=== PATIENT | male | born 1940 ===

== ENCOUNTER 2018-01-13 19:43 | Emergency (ER) | payer MEDICARE ==
[2018-01-13 20:10] VITALS: BP 110/57; PULSE 60; RESP 16; TEMP 98.1; O2SAT 96
[2018-01-13 20:11] VITALS: BMI 35.7
[2018-01-13] MEDS ORDERED: Lidocaine 1% Inj (20ml) IJ ONE (20:29)
[2018-01-13] MEDS ORDERED: Tdap Vaccine 0.5 ml Vial (10-64 yrs) IM ONE ×2 (20:29→21:02)
[2018-01-13] MEDS ORDERED: Lidocaine 1% Inj (20ml) ONE (20:43)
[2018-01-13] MEDS ORDERED: Povidone Iodine Topical 10% Sol ONE (20:43)
--- NOTE | 2018-01-13 20:44 | ED PDOC ---
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 States he owns the dog. Denies numbness or tingling. PMD: Satya Polk Past Medical History Reviewed: Historical Data, Nursing Documentation, Vital Signs Vital Signs: Last Vital Signs Temp 98.1 F 01/13/18 20:10 Pulse 60 01/13/18 20:10 Resp 16 01/13/18 20:10 BP 110/57 L 01/13/18 20:10 Pulse Ox 96 01/13/18 20:49 - Medical History PMH: CAD, CHF, Diabetes, Gastritis, HTN, Hypercholesterolemia, Peripheral Edema , Sleep Apnea - Surgical History Surgical History: Coronary Stent, Pacemaker - Family History Family History: States: Unknown Family Hx - Home Medications Home Medications: Ambulatory Orders Medication Instructions Recorded Clopidogrel [Plavix] 75 mg PO DAILY 04/11/14 DULoxetine [Cymbalta] 60 mg PO QPM 04/11/14 Fluticasone Nasal [Flonase] 1 spr HEENA BID PRN 04/11/14 Insulin Glargine,Hum.rec.anlog 30 unit SC HS 04/11/14 [Lantus] Insulin Lispro Mix 75/25 [HumaLOG 30 units SC BID 04/11/14 Mix 75/25] Testosterone [Androgel] 4 actuation TOP DAILY 04/11/14 Acarbose [Precose 50 mg Tab] 50 mg PO ACTID 12/24/15 Allopurinol [Zyloprim] 100 mg PO DAILY 12/24/15 Canagliflozin [Invokana] 100 mg PO DAILY 12/24/15 Carvedilol [Coreg] 25 mg PO Q12H 12/24/15 Ergocalciferol (Vitamin D2) 50,000 unit PO Q14D 12/24/15 [Vitamin D2] Furosemide [Lasix] 20 mg PO DAILY 12/24/15 Ibuprofen [Motrin Tab] 600 mg PO BID PRN 12/24/15 Latanoprost 0.005% Opht [Xalatan 1 drop EACHEYE HS 12/24/15 Opht] Liraglutide [Victoza 3-Kane] 1.8 mg SC DAILY 12/24/15 Losartan/Hydrochlorothiazide 100 mg PO DAILY 12/24/15 [Hyzaar 100-25 Tablet] Magnesium Oxide [Magox 400] 400 mg PO DAILY 12/24/15 MetFORMIN ER [Glucophage XR] 1,000 mg PO BID 12/24/15 [place]-3 Fatty Acids [[place]-3] 1,000 mg PO TID 12/24/15 Potassium Chloride [Klor-Con 10] 10 meq PO DAILY 12/24/15 Rosuvastatin Calcium [Crestor] 10 mg PO DAILY 12/24/15 Sevelamer Carbonate [Renvela] 800 mg PO TID 12/24/15 Tamsulosin [Flomax] 0.4 mg PO HS 12/24/15 Zolpidem [Ambien] 10 mg PO HS PRN 12/24/15 amLODIPine [Norvasc] 5 mg PO DAILY 12/24/15 cloNIDine [Catapres] 0.1 mg PO BID 12/24/15 Albuterol 0.083% [Albuterol 0.083% 2.5 mg IH Q4 PRN #50 vial 06/14/16 Inhal Cristel (2.5 mg/3 ml) UD] Prednisone 50 mg PO DAILY #4 tablet 06/14/16 traMADol [Ultram] 50 mg PO TID PRN #20 tab 08/03/16 Albuterol HFA [Ventolin HFA 90 2 puff IH [id number] PRN #60 puff 09/24/16 mcg/actuation (8 g)] Benzonatate [Tessalon Perle] 100 mg PO Q8 PRN #30 capsule 09/24/16 Amoxicillin/Clavulanate [Augmentin 1 tab PO BID #20 tab 01/13/18 875 MG-125 MG] - Allergies Allergies/Adverse Reactions: Allergies Allergy/AdvReac Type Severity Reaction Status Date / Time No Known Allergies Allergy Verified 09/24/16 10:28 Review of Systems ROS Statement: Except As Marked, All Systems Reviewed And Found Negative Constitutional: Negative for: Other (numbness of tingling) Musculoskeletal: Positive for: Hand Pain (right) Physical Exam - Reviewed Nursing Documentation Reviewed: Yes Vital Signs Reviewed: Yes - Physical Exam Appears: Positive for: Non-toxic, No Acute Distress Head Exam: Positive for: ATRAUMATIC, NORMAL INSPECTION, NORMOCEPHALIC Skin: Positive for: Normal Color, Warm, Dry. Negative for: Rash Eye Exam: Positive for: Normal appearance Pulses-Radial (R): 2+ Extremity: Positive for: Normal ROM (actively of right thumb), Tenderness (2 cm superficial jagged laceration on right thenar eminence without tendon involvement or deep structure), Capillary Refill (less than 2 seconds), Swelling. Negative for: Deformity, Other (active bleeding) Neurologic/Psych: Positive for: Alert, Oriented (x3) - ECG O2 Sat by Pulse Oximetry: 96 (RA) Pulse Ox Interpretation: Normal Medical Decision Making Medical Decision Making: Time: 2018 Initial Plan: --Adacel 10-64 yrs 0.5ml IM --Lidocaine 1% (20ml) 3ml --Reevaluation Scribe Attestation: Documented by Barry Clark, acting as a scribe for Frandy Cheatham PA-C. Provider Scribe Attestation: All medical record entries made by the Scribe were at my direction and personally dictated by me. I have reviewed the chart and agree that the record accurately reflects my personal performance of the history, physical exam, medical decision making, and the department course for this patient. I have also personally directed, reviewed, and agree with the discharge instructions and disposition. Disposition - Clinical Impression Clinical Impression: Dog bite - Patient ED Disposition Is Patient to be Admitted: No - Disposition Referrals: [facility] [Outside] Disposition: Routine/Home Disposition Time: 23:00 Condition: STABLE Additional Instructions: Suture removal in 7-10 days. Follow up with PMD or return to ED in 48 hours for wound check. Return to ED immediately if symptoms worsen. Prescriptions: Amoxicillin/Clavulanate [Augmentin 875 MG-125 MG] 1 tab PO BID #20 tab Instructions: Animal Bites (DC) Forms: [employer] (Romanian) Procedures - Time-Out Type of Procedure: laceration repair Site of Procedure: R hand PA/Tech: Linden YAÑEZ - Laceration/Wound Repair Laceration repair Wound Length (cm): 2 Wound's Depth, Shape: superficial, irregular, stellate Wound Explored: clean Irrigated w/ Saline (ccs): 400 Betadine Prep?: Yes Anesthesia: 1% Lidocaine Volume Anesthetic (ccs): 4 Wound Repaired With: Sutures Suture Size/Type: 5:0, proline Number of Sutures: 7 Wound Complexity: Complex Sterile Dressing Applied?: Yes Progress: All sutures were loosely tied as laceration is due to a dog bite.
== END 2018-01-13 22:35 | disposition home or self-care (01) ==
LOC: H.ER 19:43
DX: S61.451A Open bite of right hand, initial encounter (principal); W54.0XXA Bitten by dog, initial encounter; Y92.89 Other specified places as the place of occurrence of the external cause; E11.9 Type 2 diabetes mellitus without complications; E78.00 Pure hypercholesterolemia, unspecified; I11.0 Hypertensive heart disease with heart failure; I50.9 Heart failure, unspecified; Z79.4 Long term (current) use of insulin; Z95.0 Presence of cardiac pacemaker; Z95.5 Presence of coronary angioplasty implant and graft; I25.10 Atherosclerotic heart disease of native coronary artery without angina pectoris

== ENCOUNTER 2018-01-15 08:22 | Emergency (ER) | payer MEDICARE ==
[2018-01-15 08:25] VITALS: BMI 35.4
[2018-01-15 08:26] VITALS: O2SAT 98
--- NOTE | 2018-01-15 09:06 | ED PDOC ---
HPI: Wound Care - HPI Time Seen by Provider: 01/15/18 08:48 Chief Complaint (Nursing): Wound Check History Per: Patient (this 77 yo male is here for wound check.) Past Medical History Vital Signs: Last Vital Signs Temp 98.6 F 01/15/18 08:26 Pulse 60 01/15/18 08:26 Resp 20 01/15/18 08:26 BP 153/70 H 01/15/18 08:26 Pulse Ox 98 01/15/18 08:26 - Medical History PMH: CAD, CHF, Diabetes, Gastritis, HTN, Hypercholesterolemia, Peripheral Edema , Sleep Apnea - Surgical History Surgical History: Coronary Stent, Pacemaker - Family History Family History: States: Unknown Family Hx - Home Medications Home Medications: Ambulatory Orders Medication Instructions Recorded Clopidogrel [Plavix] 75 mg PO DAILY 04/11/14 DULoxetine [Cymbalta] 60 mg PO QPM 04/11/14 Fluticasone Nasal [Flonase] 1 spr HEENA BID PRN 04/11/14 Insulin Glargine,Hum.rec.anlog 30 unit SC HS 04/11/14 [Lantus] Insulin Lispro Mix 75/25 [HumaLOG 30 units SC BID 04/11/14 Mix 75/25] Testosterone [Androgel] 4 actuation TOP DAILY 04/11/14 Acarbose [Precose 50 mg Tab] 50 mg PO ACTID 12/24/15 Allopurinol [Zyloprim] 100 mg PO DAILY 12/24/15 Canagliflozin [Invokana] 100 mg PO DAILY 12/24/15 Carvedilol [Coreg] 25 mg PO Q12H 12/24/15 Ergocalciferol (Vitamin D2) 50,000 unit PO Q14D 12/24/15 [Vitamin D2] Furosemide [Lasix] 20 mg PO DAILY 12/24/15 Ibuprofen [Motrin Tab] 600 mg PO BID PRN 12/24/15 Latanoprost 0.005% Opht [Xalatan 1 drop EACHEYE HS 12/24/15 Opht] Liraglutide [Victoza 3-Kane] 1.8 mg SC DAILY 12/24/15 Losartan/Hydrochlorothiazide 100 mg PO DAILY 12/24/15 [Hyzaar 100-25 Tablet] Magnesium Oxide [Magox 400] 400 mg PO DAILY 12/24/15 MetFORMIN ER [Glucophage XR] 1,000 mg PO BID 12/24/15 [place]-3 Fatty Acids [[place]-3] 1,000 mg PO TID 12/24/15 Potassium Chloride [Klor-Con 10] 10 meq PO DAILY 12/24/15 Rosuvastatin Calcium [Crestor] 10 mg PO DAILY 12/24/15 Sevelamer Carbonate [Renvela] 800 mg PO TID 12/24/15 Tamsulosin [Flomax] 0.4 mg PO HS 12/24/15 Zolpidem [Ambien] 10 mg PO HS PRN 12/24/15 amLODIPine [Norvasc] 5 mg PO DAILY 12/24/15 cloNIDine [Catapres] 0.1 mg PO BID 12/24/15 Albuterol 0.083% [Albuterol 0.083% 2.5 mg IH Q4 PRN #50 vial 06/14/16 Inhal Cristel (2.5 mg/3 ml) UD] Prednisone 50 mg PO DAILY #4 tablet 06/14/16 traMADol [Ultram] 50 mg PO TID PRN #20 tab 08/03/16 Albuterol HFA [Ventolin HFA 90 2 puff IH [id number] PRN #60 puff 09/24/16 mcg/actuation (8 g)] Benzonatate [Tessalon Perle] 100 mg PO Q8 PRN #30 capsule 09/24/16 Amoxicillin/Clavulanate [Augmentin 1 tab PO BID #20 tab 01/13/18 875 MG-125 MG] - Allergies Allergies/Adverse Reactions: Allergies Allergy/AdvReac Type Severity Reaction Status Date / Time No Known Allergies Allergy Verified 09/24/16 10:28 Review of Systems ROS Statement: Except As Marked, All Systems Reviewed And Found Negative Constitutional: Negative for: Fever, Chills Skin: Positive for: Other (no drainage or pain) Physical Exam - Reviewed Nursing Documentation Reviewed: Yes Vital Signs Reviewed: Yes - Physical Exam Appears: Positive for: Well, Non-toxic, No Acute Distress Head Exam: Positive for: ATRAUMATIC, NORMAL INSPECTION, NORMOCEPHALIC Skin: Positive for: Normal Color Eye Exam: Positive for: Normal appearance ENT: Positive for: Normal ENT Inspection Neck: Positive for: Normal Respiratory: Negative for: Respiratory Distress Gastrointestinal/Abdominal: Negative for: Distended Back: Positive for: Normal Inspection Extremity: Positive for: Normal ROM, Other (no induration or discharge). Negative for: Tenderness, Deformity, Swelling Neurologic/Psych: Positive for: Alert, Oriented - ECG O2 Sat by Pulse Oximetry: 98 Disposition - Clinical Impression Clinical Impression: Encounter for re-check of laceration wound - Patient ED Disposition Is Patient to be Admitted: No Doctor Will See Patient In The: Office Counseled Patient/Family Regarding: Diagnosis, Need For Followup - Disposition Referrals: [facility] [Outside] Disposition: Routine/Home Disposition Time: 09:11 Condition: STABLE Instructions: Wound Care (DC) - POA Present On Arrival: Falls Or Trauma
[2018-01-15 09:35] VITALS: BP 126/78; PULSE 78; RESP 19; TEMP 97
== END 2018-01-15 09:35 | disposition home or self-care (01) ==
LOC: H.ER 08:22
DX: Z48.00 Encounter for change or removal of nonsurgical wound dressing (principal)

== ENCOUNTER 2018-07-06 09:26 | Observation (INO) | payer MEDICARE ==
[2018-07-06 09:26] VITALS: BMI 35.4
[2018-07-06 10:12] LABS: BASO % 0.6 % (0.0-2.0); EOS # 0.1 K/uL (0.0-0.7); EOS % 1.3 % (0.0-4.0); HEMOGLOBIN 9.8 g/dL (12.0-18.0); LYMPH # 0.9 K/uL (1.0-4.3); LYMPH % 12.8 % (20.0-40.0); MEAN CELL VOLUME 91.7 fl (80.0-94.0); MEAN CORPUSCULAR HEMOGLOBIN 30.3 pg (27.0-31.0); MEAN PLATELET VOLUME 8.9 fl (7.2-11.7); MONO # 0.4 K/uL (0.0-0.8); MONO % 5.4 % (0.0-10.0); NEUT # 5.4 K/uL (1.8-7.0); NEUT % 79.9 % (50.0-75.0); NRBC % 0.1 % (0.0-0.0); RBC 3.25 Mil/uL (4.40-5.90); RED CELL DISTRIBUTION WIDTH 13.8 % (11.5-14.5); WHITE BLOOD COUNT 6.7 K/uL (4.8-10.8)
--- NOTE | 2018-07-06 10:34 | RAD ---
Date of service: 07/06/2018 HISTORY: Cough COMPARISON: No prior. TECHNIQUE: Chest PA and lateral FINDINGS: LINES AND TUBES: None. LUNG AND PLEURA: The lungs are well inflated and clear. No pleural effusion or pneumothorax. HEART AND MEDIASTINUM: There is moderate cardiomegaly. Atherosclerotic aortic arch calcifications are present. There is stable position of left-sided permanent pacing device. The hilar and mediastinal contours are within normal limits. SKELETAL STRUCTURES: The bony structures are within normal limits for the patient's age. VISUALIZED UPPER ABDOMEN: Normal. OTHER FINDINGS: None. IMPRESSION: No active pulmonary disease. No significant interval change.
[2018-07-06 10:37] LABS: TROPONIN I 0.019 ng/mL (0.00-0.120)
[2018-07-06 10:39] LABS: ALB/GLOB RATIO 1.1 (1.0-2.1); ALBUMIN 3.8 g/dL (3.5-5.0)
--- NOTE | 2018-07-06 11:15 | ED PDOC ---
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 Limitations: no limitations Onset/Duration Of Symptoms: Days (4), Gradual Current Symptoms Are (Timing): Still Present Initiating Event: Upper Respiratory Illness Quality: Tightness Exacerbating Factor(s): Exertion, Laying Flat Current Respiratory Medications: See Home Med List Severity: Moderate Associated Symptoms: Sweating, Productive Cough, Dizziness Recently: Treated By A Physician Additional Complaint(s): 77yo male hx pacemaker, DM, HTN, asthma presents c/o worsening cough and SOB, s een PMD Dr Polk yesterday started levaquin, medrol dose kane and albuterol, today chest congestion persisted hence came to ED for eval. Denies edema, has mild orthopnea. Takes lasix 20mg daily and Hyzaar/HCTZ. Family states also currently under workup for "blood behind the retina" had injection to eye and due for ophtho visit . Patient notes new redness to the eyes but denies change vision. Per family Dr Polk placed on eye drops yesterday but unsure for what. PMD [facility] Shira Brunson Past Medical History Reviewed: Historical Data, Nursing Documentation, Vital Signs Vital Signs: Last Vital Signs Temp 98.4 F 07/06/18 09:37 Pulse 60 07/06/18 09:37 Resp 15 07/06/18 09:37 BP 115/63 07/06/18 09:37 Pulse Ox 98 07/06/18 09:37 - Medical History PMH: CAD, CHF, Diabetes, Gastritis, HTN, Hypercholesterolemia, Peripheral Edema, Sleep Apnea - Surgical History Surgical History: Coronary Stent, Pacemaker - Family History Family History: States: Unknown Family Hx - Home Medications Home Medications: Ambulatory Orders Medication Instructions Recorded DULoxetine [Cymbalta] 60 mg PO DAILY 04/11/14 Fluticasone Nasal [Flonase] 1 spr HEENA BID PRN 04/11/14 Insulin Lispro Mix 75/25 [HumaLOG 30 units SC BID 04/11/14 Mix 75/25] Testosterone [Androgel] 4 actuation TOP DAILY 04/11/14 Acarbose [Precose 50 mg Tab] 50 mg PO ACTID 12/24/15 Allopurinol [Zyloprim] 200 mg PO DAILY 12/24/15 Carvedilol [Coreg] 25 mg PO Q12H 12/24/15 Ergocalciferol (Vitamin D2) 50,000 unit PO SUN 12/24/15 [Vitamin D2] Furosemide [Lasix] 20 mg PO DAILY 12/24/15 Latanoprost 0.005% Opht [Xalatan 1 drop EACHEYE HS 12/24/15 Opht] Liraglutide [Victoza 3-Kane] 1.8 mg SC DAILY 12/24/15 Losartan/Hydrochlorothiazide 1 tab PO DAILY 12/24/15 [Hyzaar 100-25 Tablet] [place]-3 Fatty Acids [[place]-3] 1,000 mg PO TID 12/24/15 Potassium Chloride [Klor-Con 10] 20 meq PO DAILY 12/24/15 Rosuvastatin Calcium [Crestor] 10 mg PO DAILY 12/24/15 Sevelamer Carbonate [Renvela] 800 mg PO TID 12/24/15 Tamsulosin [Flomax] 0.4 mg PO HS 12/24/15 amLODIPine [Norvasc] 5 mg PO DAILY 12/24/15 cloNIDine [Catapres] 0.1 mg PO Q12 12/24/15 Albuterol Sulfate [Proair Hfa] 2 puff IH Q6 PRN 07/06/18 Aspirin [Ecotrin] 81 mg PO DAILY 07/06/18 Ferric Citrate [Auryxia] 210 mg PO BID 07/06/18 Ferrous Sulfate [Feosol] 325 mg PO DAILY 07/06/18 Insulin Glargine,Hum.rec.anlog 30 unit SC HS 07/06/18 [[place] Solostar] MetFORMIN [glucoPHAGE] 1,000 mg PO BID 07/06/18 Methylprednisolone [Medrol Dose 4 mg PO ASDIR 07/06/18 Pack (21 tabs)] Promethazine DM [Phenergan DM 5 ml PO Q6 PRN 07/06/18 Syrup] Rivaroxaban [Xarelto] 15 mg PO QPM 07/06/18 Zolpidem [Ambien] 5 mg PO HS 07/06/18 levoFLOXacin [Levaquin] 500 mg PO DAILY 07/06/18 - Allergies Allergies/Adverse Reactions: Allergies Allergy/AdvReac Type Severity Reaction Status Date / Time No Known Allergies Allergy Verified 09/24/16 10:28 Wells Criteria for PE - Wells Criteria for Pulmonary Embolism Clinical Signs and Symptoms of DVT: No P.E is #1 Diagnosis, or Equally Likely: No Heart Rate >100: No Immobilization at least 3 days;Surgery previous 4 weeks: No Previous, objectively diagnosed PE or DVT: No Hemoptysis: No Malignancy w/treatment within 6 months, or palliative: No Total Score: 0 Review of Systems ROS Statement: Except As Marked, All Systems Reviewed And Found Negative Constitutional: Negative for: Fever, Chills Cardiovascular: Positive for: Chest Pain, Palpitations, Orthopnea Respiratory: Positive for: Cough, Shortness of Breath Gastrointestinal: Negative for: Nausea, Abdominal Pain, Diarrhea Genitourinary Male: Negative for: Dysuria Musculoskeletal: Negative for: Neck Pain, Shoulder Pain Skin: Negative for: Rash, Lesions Neurological: Positive for: Dizziness. Negative for: Weakness, Seizures, Headache Psych: Negative for: Depression Physical Exam - Reviewed Nursing Documentation Reviewed: Yes Vital Signs Reviewed: Yes - Physical Exam Appears: Positive for: Non-toxic, No Acute Distress Head Exam: Positive for: ATRAUMATIC, NORMAL INSPECTION, NORMOCEPHALIC Skin: Positive for: Normal Color, Warm, DRY Eye Exam: Positive for: EOMI, Normal appearance, PERRL ENT: Positive for: Normal ENT Inspection Neck: Positive for: Normal, Painless ROM Cardiovascular/Chest: Positive for: Regular Rate, Rhythm, Chest Non Tender Respiratory: Positive for: Decreased Breath Sounds Pulses-Radial (L): 3+/4+ Pulses-Radial (R): 3+/4+ Gastrointestinal/Abdominal: Positive for: Soft. Negative for: Tenderness, Guarding Back: Positive for: Normal Inspection Extremity: Positive for: Normal ROM Neurologic/Psych: Positive for: Alert, Oriented. Negative for: Motor/Sensory Deficits - Laboratory Results Result Diagrams: 07/06/18 10:06 07/06/18 10:06 - ECG ECG: Positive for: Interpreted By Me ECG Rhythm: Positive for: Venticular Paced, Nonspecific Changes Interpretation Of ECG: wide QRS/paced Rate: 60 O2 Sat by Pulse Oximetry: 98 Pulse Ox Interpretation: Normal - Radiology X-Ray: Read By Radiologist X-Ray Interpretation: Other (neg CHF or pneumonia) Medical Decision Making Medical Decision Making: labs reviewed and compared to prior from dec 3 and worsening renal function BNP mildly elevated WBC normal worsening anemia, Hgb 9.8 down 1 point from 2 weeks ago. CXR no acute pneumonia but clinically +cough w sputum, malaise, likely clinical pneumonia/bronchitis D/w Dr Mallory covering Dr Diaz, recommends avoiding levaquin and starting rocephin, admit Obs will see on consult. Needs outpt medications adjusted for renal function, metformin, EDWAR, etc. D/w PMD Dr Polk agrees w plan admit hospitalist needs confirmation of eye drops to continue on med floor Disposition - Clinical Impression Clinical Impression: Acute on chronic renal failure, Dyspnea, Acute bronchitis - Patient ED Disposition Is Patient to be Admitted: Yes Counseled Patient/Family Regarding: Studies Performed, Diagnosis, Need For Followup, Rx Given - Disposition Disposition Time: 11:08 Condition: FAIR
[2018-07-06] MEDS ORDERED: cefTRIAXone (Rocephin) 1 gm Inj ONE (11:47)
--- NOTE | 2018-07-06 12:31 | CP.PCM.HP ---
<Mitul Plata - Last Filed: 07/06/18 14:41> History of Present Illness - History of Present Illness History of Present Illness: 77 y/o M with PMHx of DM2, HTN, HLD and CKD presented to ED complaining of non- productive cough, mild SOB and bilateral eye redness and watery discharge that began 5 days ago. Pt visited PMD yesterday who administered IM steroid and started him on PO Levofloxacin and ?Prednisone. Pt reported his cough aggravated today and decided to come. Pt has decreased his PO intake on the past few days, specifically water intake. Pt denies fever, headache, dizziness, chest pain, wheezing, nausea, abdominal pain or rash. PMD: Dr Polk Cardiology: Dr Parr/Dr Valentin Nephology: Dr Mallory NKDA -PMHx: HTN, HLD, DM2, glaucoma, CKD -PSHx: Pacemaker placement -SHx: Never smoker, social alcohol once every 2 weeks, no rec drugs. At ED: --Normocytic anemia on CBC. --CMP: Creatinine 2.2-elevated. --CXR showed NO acute pneumonia. --NT-ProBNP 1,040-elevated. --IV Ceftriaxone administered x1. Present on Admission - Present on Admission Any Indicators Present on Admission: No Review of Systems - Constitutional Constitutional: absent: Anorexia, Chills, Fever - EENT Eyes: absent: Blind Spots, Blurred Vision, Change in Vision Ears: absent: Decreased Hearing, Ear Pain, Tinnitus Nose/Mouth/Throat: absent: Epistaxis, Change in Voice, Hoarsness, Sore Throat - Cardiovascular Cardiovascular: Dyspnea. absent: Chest Pain, Claudication, Edema - Respiratory Respiratory: Cough. absent: Dyspnea, Hemoptysis, Wheezing, Pain on Inspiration - Gastrointestinal Gastrointestinal: absent: Belching, Bloating, Constipation, Diarrhea - Genitourinary Genitourinary: absent: Change in Urinary Stream, Difficulty Urinating, Dysuria - Psychiatric Psychiatric: absent: Anxiety, Depression Past Patient History - Infectious Disease Hx of Infectious Diseases: None - Past Medical History & Family History Past Medical History?: Yes - Past Social History Smoking Status: Never Smoked - CARDIAC Hx Congestive Heart Failure: Yes Hx Hypercholesterolemia: Yes Hx Hypertension: Yes Hx Pacemaker: Yes Hx Peripheral Edema: Yes - PULMONARY Hx Sleep Apnea: Yes - NEUROLOGICAL Hx Neurological Disorder: Yes HX Cerebrovascular Accident: No Hx Dizziness: No Hx Syncope: No Other/Comment: DIABETIC NEUROPATHY - HEENT Hx HEENT Problems: Yes Hx Blind: No Hx Deafness: No Hx Difficulty Chewing: No Hx Glaucoma: Yes - ENDOCRINE/METABOLIC Hx Endocrine Disorders: Yes Hx Diabetes Mellitus Type 2: Yes - HEMATOLOGICAL/ONCOLOGICAL Hx Blood Disorders: No Hx Bruising: No Hx Hepatitis A: No Hx Hepatitis B: No Hx Hepatitis C: No - INTEGUMENTARY Hx Dermatological Problems: Yes Other/Comment: CHICKEN POXSHINGLES - MUSCULOSKELETAL/RHEUMATOLOGICAL Hx Musculoskeletal Disorders: Yes Hx Falls: Yes - GASTROINTESTINAL Hx Gastritis: Yes - GENITOURINARY/GYNECOLOGICAL Hx Genitourinary Disorders: Yes Other/Comment: difficulty urinating. pt takes flomax - PSYCHIATRIC Hx Psychophysiologic Disorder: No Hx Substance Use: No - SURGICAL HISTORY Hx Coronary Stent: Yes - ANESTHESIA Hx Anesthesia: Yes Hx Anesthesia Reactions: No Hx Malignant Hyperthermia: No Meds Allergies/Adverse Reactions: Allergies Allergy/AdvReac Type Severity Reaction Status Date / Time No Known Allergies Allergy Verified 09/24/16 10:28 Physical Exam - Constitutional Appears: No Acute Distress - Head Exam Head Exam: ATRAUMATIC, NORMAL INSPECTION - Eye Exam Eye Exam: Conjunctival injection, EOMI - ENT Exam ENT Exam: Mucous Membranes Moist - Neck Exam Neck exam: Positive for: Full Rom, Normal Inspection - Respiratory Exam Respiratory Exam: Rales (On LLL), Wheezes (at the end of expiration. ). absent: Respiratory Distress - Cardiovascular Exam Cardiovascular Exam: REGULAR RHYTHM, +S1, +S2 - GI/Abdominal Exam GI & Abdominal Exam: Normal Bowel Sounds, Soft. absent: Guarding, Rebound, Rigid, Tenderness - Extremities Exam Extremities exam: Positive for: full ROM, normal capillary refill. Negative for: calf tenderness, pedal edema, tenderness - Neurological Exam Neurological exam: Alert, Oriented x3 Results - Vital Signs Recent Vital Signs: Last Vital Signs Temp 98.4 F 07/06/18 12:26 Pulse 65 07/06/18 12:26 Resp 18 07/06/18 12:26 BP 143/66 07/06/18 12:26 Pulse Ox 95 07/06/18 12:26 - Labs Result Diagrams: 07/06/18 10:06 07/06/18 10:06 Labs: Laboratory Results - last 24 hr 07/06/18 07/06/18 10:06 10:06 WBC 6.7 RBC 3.25 L Hgb 9.8 L Hct 29.8 L MCV 91.7 MCH 30.3 MCHC 33.0 RDW 13.8 Plt Count 171 MPV 8.9 Neut % (Auto) 79.9 H Lymph % (Auto) 12.8 L [place] % (Auto) 5.4 Eos % (Auto) 1.3 Baso % (Auto) 0.6 Neut # (Auto) 5.4 Lymph # (Auto) 0.9 L [place] # (Auto) 0.4 Eos # (Auto) 0.1 Baso # (Auto) 0.0 Sodium 139 Potassium 4.9 Chloride 99 Carbon Dioxide 29 Anion Gap 16 BUN 37 H Creatinine 2.2 H Est GFR ( Amer) 35 Est GFR (Non-Af Amer) 29 Random Glucose 176 H Calcium 9.0 Total Bilirubin 0.2 AST 21 ALT 24 Alkaline Phosphatase 43 Troponin I 0.0190 NT-Pro-B Natriuret Pep 1040 H Total Protein 7.2 Albumin 3.8 Globulin 3.4 Albumin/Globulin Ratio 1.1 Assessment & Plan - Assessment and Plan (Free Text) Assessment: 77 y/o M with a PMHx of DM2, HTN, HLD and CKD was admitted due to clinical pneumonia, aggravating renal function and evaluation of acute heart failure. PLAN: >Community Acquired Pneumonia --CXR unremarkable --Clinically consistent with Acute bronchitis vs CAP. Possibly viral etiology since conjunctivitis is present. --IV Ceftriaxone and Azithromycin as empiric treatment. --Duoneb PRN. >Chronic Heart Failure --Hx of pacemaker placement, LVEF of 30-40% on 2016 Echocardiogram, rales on LL on exam. --NT-ProBNP 1,040-elevated. --Echocardiogram ordered. --Cardiology consult, Dr Baxter. --Duoneb PRN >Acute Kidney Injury --Creatinine 2.2-elevated. --acute on chronic kidney disease --Likely due to dehydration, poor PO intake. --Nephrology consult, Dr Mallory. --IV NSS at 80 mL/hr. --Monitor for possible volume overload. >DM2 --Home medication resumed --Insulin Sliding scale --Hypoglycemia protocol --Heart healthy diet. >HTN --Home meds resumed --F/U vital signs. >DVT Prophylaxis --SCD --Lovenox, renal dose Case discussed with Dr Meredith, Hospitalist [facility] PGY-2 - Date & Time Date: 07/06/18 Time: 13:15 <Andrei Meredith - Last Filed: 07/06/18 19:32> Results - Vital Signs Recent Vital Signs: Last Vital Signs Temp 97.9 F 07/06/18 15:46 Pulse 62 07/06/18 18:58 Resp 17 07/06/18 15:46 BP 136/65 07/06/18 18:58 Pulse Ox 96 07/06/18 15:46 - Labs Result Diagrams: 07/06/18 10:06 07/06/18 10:06 Labs: Laboratory Results - last 24 hr 07/06/18 07/06/18 07/06/18 10:06 10:06 16:46 WBC 6.7 RBC 3.25 L Hgb 9.8 L Hct 29.8 L MCV 91.7 MCH 30.3 MCHC 33.0 RDW 13.8 Plt Count 171 MPV 8.9 Neut % (Auto) 79.9 H Lymph % (Auto) 12.8 L [place] % (Auto) 5.4 Eos % (Auto) 1.3 Baso % (Auto) 0.6 Neut # (Auto) 5.4 Lymph # (Auto) 0.9 L [place] # (Auto) 0.4 Eos # (Auto) 0.1 Baso # (Auto) 0.0 Sodium 139 Potassium 4.9 Chloride 99 Carbon Dioxide 29 Anion Gap 16 BUN 37 H Creatinine 2.2 H Est GFR ( Amer) 35 Est GFR (Non-Af Amer) 29 POC Glucose (mg/dL) 275 H Random Glucose 176 H Calcium 9.0 Total Bilirubin 0.2 AST 21 ALT 24 Alkaline Phosphatase 43 Troponin I 0.0190 NT-Pro-B Natriuret Pep 1040 H Total Protein 7.2 Albumin 3.8 Globulin 3.4 Albumin/Globulin Ratio 1.1 Attending/Attestation - Attestation I have personally seen and examined this patient.: Yes I have fully participated in the care of the patient.: Yes I have reviewed all pertinent clinical information: Yes Notes (Text): 07/06/18 19:31 Patient seen and examined with resident. Case discussed and agreed with assessment and plan of management.
[2018-07-06] MEDS ORDERED: Albuterol-Ipratrop 3 mg / 0.5 (3 ml) UD INH PRN (14:18)
[2018-07-06] MEDS ORDERED: Dextrose 50% SYRINGE Inj (50 ml) IV PRN (14:24)
[2018-07-06] MEDS ORDERED: Glucagon Recombinant 1 mg Inj IM PRN (14:24)
[2018-07-06] MEDS: Azithromycin 500 MG in Sodium Chloride 0.9% 250 ML IVPB SCH (16:29)
[2018-07-06] MEDS: Omega-3-Acid Ethyl Esters 1 GM Cap PO SCH (16:35)
[2018-07-06] MEDS: Insulin Lispro (humaLOG) 100 Units/ml Inj SC SCH ×3 (16:48→22:58)
--- NOTE | 2018-07-06 19:04 | CARD ---
APPROVED REPORT Date of service: 07/06/2018 EKG Measurement Heart [id number] <Conclusion> AV sequential paced rhythm Abnormal ECG
--- NOTE | 2018-07-06 19:16 | CARD ---
APPROVED REPORT Date of service: 07/06/2018 EXAM: Two-dimensional and M-mode echocardiogram with Doppler and color Doppler. Other Information Quality : GoodRhythm : Pacemaker INDICATION Dyspnea Surgery/Intervention Pacemaker: 2D DIMENSIONS IVSd1.31 (0.7-1.1cm)LVDd5.28 (3.9-5.9cm) LVOT Diameter1.86 (1.8-2.4cm)PWd1.08 (0.7-1.1cm) IVSs1.98 (0.8-1.2cm)LVDs3.14 (2.5-4.0cm) FS (%) 40.4 %PWs1.38 (0.8-1.2cm) M-Mode DIMENSIONS Left Atrium (MM)4.06 (2.5-4.0cm)IVSd1.56 (0.7-1.1cm) Aortic Root3.53 (2.2-3.7cm)LVDd5.59 (4.0-5.6cm) Aortic Cusp Exc.1.78 (1.5-2.0cm)PWd1.28 (0.7-1.1cm) IVSs1.81 cmFS (%) 40 % LVDs3.38 (2.0-3.8cm)PWs1.56 cm Aortic Valve AoV Peak Zlbahvyj290.3cm/sAoV VTI54.0cmAO Peak GR.25mmHg LVOT Peak Uqxlyhqi796.1cm/sLVOT VTI25.34cmAO Mean GR.13mmHg ALMAS (VMAX)0.69ku0NTS (VTI)0.66cm2 Mitral Valve MV E Muubnvpn331.9cm/sMV DECEL [id number] A Fwnjmwrp252.5cm/s MV VMV97hlI/A ratio1.0MVA (PHT)3.64cm2 LEFT VENTRICLE The left ventricle is normal size. There is normal left ventricular wall thickness. The left ventricular systolic function is normal. The estimated ejection fraction is 55-60% No regional wall motion abnormalities noted.. Transmitral Doppler flow pattern is Grade II-pseudonormal filling dynamics. No left ventricle thrombus noted on this study. There is no ventricular septal defect visualized. There is no left ventricular aneurysm. There is no mass noted in the left ventricle. RIGHT VENTRICLE The right ventricle is normal size. There is normal right ventricular wall thickness. The right ventricular systolic function is normal. PPM lead is noticed in right ventricle. ATRIA The left atrium is mild to moderately dilated. The right atrium size is normal. The interatrial septum is intact with no evidence for an atrial septal defect. AORTIC VALVE The aortic valve is normal in structure. Mildly calcified leaflets. No aortic regurgitation is present. There is mild to moderate aortic valvular stenosis. Peak aortic velocity is 2.5 m/sec. There is no aortic valvular vegetation. MITRAL VALVE The mitral valve is normal in structure. There is no evidence of mitral valve prolapse. There is no mitral valve stenosis. There is trace mitral valve regurgitation noted. TRICUSPID VALVE The tricuspid valve is normal in structure. There is mild tricuspid valve regurgitation noted. There is no tricuspid valve prolapse or vegetation. There is no tricuspid valve stenosis. PULMONIC VALVE The pulmonary valve is normal in structure. There is no pulmonic valvular regurgitation. There is no pulmonic valvular stenosis. GREAT VESSELS The aortic root is normal in size. The ascending aorta is normal in size. The pulmonary artery is normal. The IVC is dilated in size and collapses >50% with inspiration. PERICARDIAL EFFUSION There is no pericardial effusion. There is no pleural effusion. <Conclusion> The estimated ejection fraction is 55-60% Transmitral Doppler flow pattern is Grade II-pseudonormal filling dynamics. The left atrium is mild to moderately dilated. PPM lead is noticed in right ventricle. There is mild to moderate aortic valvular stenosis. Peak aortic velocity is 2.5 m/sec. There is mild tricuspid valve regurgitation noted. The IVC is dilated in size and collapses >50% with inspiration.
--- NOTE | 2018-07-06 20:14 | CP.PCM.CON ---
History of Present Illness - History of Present Illness History of Present Illness: I was asked to see patient by Dr Adame, who I am covering. Patient seen 07/06/181999 Patient is a 77 jeancarlos old male with HTN, hypercholesterolemia CAD PPM who presents with dyspnea. Symptoms began about one week ago, and the patient reports dyspnea and productive cough. He had a recent cardiac work up with Dr Adame. He is responding to abx. Review of Systems - Constitutional Constitutional: absent: As Per HPI, Anorexia, Chills, Daytime Sleepiness, Excessive Sweating, Fatigue, Fever, Frequent Falls, Headache, Increased Appetite, Lethargy, Malaise, Night Sweats, Snoring, Sleep Apnea, Weight Gain, Weight Loss, Weakness, Other - EENT Eyes: absent: As Per HPI, Blind Spots, Blurred Vision, Change in Vision, Decreased Night Vision, Diplopia, Discharge, Dry Eye, Exophthalmos, Floaters, Irritation, Itchy Eyes, Loss of Peripheral Vision, Pain, Photophobia, Requires Corrective Lenses, Sees Flashes, Spots in Vision, Tunnel Vision, Other Visual Disturbances, Loss of Vision, Other Ears: absent: As Per HPI, Decreased Hearing, Ear Discharge, Ear Pain, Tinnitus, Abnormal Hearing, Disequilibrium, Dizziness, Other Nose/Mouth/Throat: absent: As Per HPI, Epistaxis, Nasal Congestion, Nasal Discharge, Nasal Obstruction, Nasal Trauma, Nose Pain, Post Nasal Drip, Sinus Pain, Sinus Pressure, Bleeding Gums, Change in Voice, Dental Pain, Dry Mouth, Dysphagia, Halitosis, Hoarsness, Lip Swelling, Mouth Lesions, Mouth Pain, Odynophagia, Sore Throat, Throat Swelling, Tongue Swelling, Facial Pain, Neck Pain, Neck Mass, Other - Cardiovascular Cardiovascular: absent: As Per HPI, Acrocyanosis, Chest Pain, Chest Pain at Rest, Chest Pain with Activity, Claudication, Diaphoresis, Dyspnea, Dyspnea on Exertion, Edema, Irregular Heart Rhythm, Pain Radiating to Arm/Neck/Jaw, Leg Edema, Leg Ulcers, Lightheadedness, Orthopnea, Palpitations, Paroxysmal Nocturnal Dyspnea, Pedal Edema, Radiating Pain, Rapid Heart Rate, Slow Heart Rate, Syncope, Other - Respiratory Respiratory: Dyspnea - Gastrointestinal Gastrointestinal: absent: As Per HPI, Abdominal Pain, Belching, Bloating, Change in Bowel Habits, Change in Stool Character, Coffee Ground Emesis, Constipation, Cramping, Diarrhea, Dyspepsia, Dysphagia, Early Satiety, Excessive Flatus, Fecal Incontinence, Heartburn, Hematemesis, Hematochezia, Loose Stools, Melena, Nausea, Odynophagia, Temesmus, Vomiting, Other - Genitourinary Genitourinary: absent: As Per HPI, Change in Urinary Stream, Difficulty Urinating, Dysuria, Flank Pain, Hematuria, Pyuria, Nocturia, Urinary Inc ontinence, Urinary Frequency, Urinary Hesitance, Urinary Urgency, Voiding Freq/Small Amts, Freq UTI, Hx Renal/Bladder Calculi, Hx /Renal Surgery, Bladder Distension, Other - Musculoskeletal Musculoskeletal: absent: As Per HPI, Abnormal Gait, Arthralgias, Atrophy, Back Pain, Deformity, Joint Swelling, Limited Range of Motion, Loss of Height, Muscle Cramps, Muscle Weakness, Myalgias, Neck Pain, Numbness, Radiating Pain into Limb, Stiffness, Tingling, Other - Integumentary Integumentary: absent: As Per HPI, Acne, Alopecia, Bleeding Lesions, Change in Hair, Change in Nails, Change in Pigmentation, Changing Lesions, Dry Skin, Erythema, Furuncle, Hirsutism, Lesions, New Lesions, Non-Healing Lesions, Photosensitivity, Pruritus, Rash, Skin Pain, Skin Ulcer, Sores, Striae, Swelling, Unusual Bruising, Wounds, Jaundice, Other - Neurological Neurological: absent: As Per HPI, Abnormal Gait, Abnormal Hearing, Abnormal Movements, Abnormal Speech, Behavioral Changes, Burning Sensations, Confusion, Convulsions, Disequilibrium, Dizziness, Numbness, Focal Weakness, Frequent Falls, Headaches, Lack of Coordination, Loss of Vision, Memory Loss, Paresthesias, Radicular Pain, Restless Legs, Sensory Deficit, Syncope, Tingling, Tremor, Vertigo, Weakness, Other Visual Disturbances, Other - Psychiatric Psychiatric: absent: As Per HPI, Abnormal Sleep Pattern, Anhedonia, Anxiety, Auditory Hallucinations, Behavioral Changes, Change in Appetite, Change in Libido, Confusion, Depression, Difficulty Concentrating, Hallucinations, Homicidal Ideation, Hopelessness, Irritability, Memory Loss, Mood Swings, Panic Attacks, Paranoia, Suicidal Ideation, Visual Hallucinations, Tactile Hallucinations, Other - Endocrine Endocrine: absent: As Per HPI, Change in Body Appearance, Change in Libido, Cold Intolorance, Deepening of Voice, Excessive Sweating, Fatigue, Flushing, Heat Intolorance, Increase in Ring/Shoe/Hat Size, Palpitations, Polydipsia, Polyphagia, Polyuria, Other - Hematologic/Lymphatic Hematologic: absent: As Per HPI, Easy Bleeding, Easy Bruising, Lymphadenopathy, Other Past Patient History - Infectious Disease Hx of Infectious Diseases: None - Past Medical History & Family History Past Medical History?: Yes - Past Social History Smoking Status: Never Smoked - CARDIAC Hx Congestive Heart Failure: Yes Hx Hypercholesterolemia: Yes Hx Hypertension: Yes Hx Pacemaker: Yes Hx Peripheral Edema: Yes - PULMONARY Hx Sleep Apnea: Yes - NEUROLOGICAL Hx Neurological Disorder: Yes HX Cerebrovascular Accident: No Hx Dizziness: No Hx Syncope: No Other/Comment: DIABETIC NEUROPATHY - HEENT Hx HEENT Problems: Yes Hx Blind: No Hx Deafness: No Hx Difficulty Chewing: No Hx Glaucoma: Yes - RENAL Hx Chronic Kidney Disease: No - ENDOCRINE/METABOLIC Hx Endocrine Disorders: Yes Hx Diabetes Mellitus Type 2: Yes - HEMATOLOGICAL/ONCOLOGICAL Hx Blood Disorders: No Hx Bruising: No Hx Hepatitis A: No Hx Hepatitis B: No Hx Hepatitis C: No - INTEGUMENTARY Hx Dermatological Problems: Yes Other/Comment: CHICKEN POXSHINGLES - MUSCULOSKELETAL/RHEUMATOLOGICAL Hx Musculoskeletal Disorders: Yes Hx Falls: Yes - GASTROINTESTINAL Hx Gastritis: Yes - GENITOURINARY/GYNECOLOGICAL Hx Genitourinary Disorders: Yes Other/Comment: difficulty urinating. pt takes flomax - PSYCHIATRIC Hx Psychophysiologic Disorder: No Hx Substance Use: No - SURGICAL HISTORY Hx Coronary Stent: Yes - ANESTHESIA Hx Anesthesia: Yes Hx Anesthesia Reactions: No Hx Malignant Hyperthermia: No Meds Allergies/Adverse Reactions: Allergies Allergy/AdvReac Type Severity Reaction Status Date / Time No Known Allergies Allergy Verified 09/24/16 10:28 - Medications Medications: Current Medications Acarbose (Precose 50 Mg Tab) 50 mg PO ACTID [facility] Last Admin: 07/06/18 16:36 Dose: 50 mg Albuterol/Ipratropium (Duoneb 3 Mg/0.5 Mg (3 Ml) Ud) 3 ml INH RQ6 PRN PRN Reason: Shortness of Breath Allopurinol (Zyloprim) 200 mg PO DAILY [facility] Amlodipine Besylate (Norvasc) 5 mg PO DAILY [facility] Aspirin (Ecotrin) 81 mg PO DAILY [facility] Atorvastatin Calcium (Lipitor) 20 mg PO DAILY [facility] Carvedilol (Coreg) 25 mg PO Q12H [facility] Last Admin: 07/06/18 18:58 Dose: 25 mg Clonidine HCl (Catapres) 0.1 mg PO Q12 [facility] Dextrose (Dextrose 50% Inj) 0 ml IV STAT PRN; Protocol PRN Reason: Hypoglycemia Protocol Dextrose (Glutose 15) 0 gm PO ONCE PRN; Protocol PRN Reason: Hypoglycemia Protocol Duloxetine HCl (Cymbalta) 60 mg PO DAILY [facility] Enoxaparin Sodium (Lovenox) 30 mg SC DAILY [facility]; Protocol Ferrous Sulfate (Feosol) 325 mg PO DAILY [facility] Fluticasone Propionate (Flonase) 1 spr HEENA BID PRN PRN Reason: Allergy symptoms Furosemide (Lasix) 20 mg PO DAILY [facility] Glucagon (Glucagen Diagnostic Kit) 0 mg IM STAT PRN; Protocol PRN Reason: Hypoglycemia Protocol HCTZ/Losartan Potassium (Hyzaar 12.5 Mg-50 Mg) 2 tab PO DAILY [facility] Home Med (Liraglutide [Victoza 3-Kane]) 1.8 mg SC DAILY [facility] Azithromycin 500 mg/ Sodium (Chloride) 250 mls @ 250 mls/hr IVPB DAILY [facility]; Protocol Last Admin: 07/06/18 16:29 Dose: 250 mls/hr Ceftriaxone Sodium 1 gm/ (Sodium Chloride) 100 mls @ 100 mls/hr IVPB DAILY [facility]; Protocol Sodium Chloride (Sodium Chloride 0.45%) 500 mls @ 80 mls/hr IV .[id number] [facility] Stop: 07/07/18 11:24 Last Admin: 07/06/18 16:32 Dose: 80 mls/hr Insulin Human Lispro (Humalog) 0 units SC ACCU-CHECK [facility]; Protocol Last Admin: 07/06/18 16:48 Dose: 4 units Latanoprost (Xalatan Opht) 1 drop OD HS [facility] Metformin HCl (Glucophage) 1,000 mg PO BID [facility] Last Admin: 07/06/18 16:35 Dose: 1,000 mg Kxsqi-[id number] Ethyl Esters (Lovaza) 1 gm PO TID [facility] Last Admin: 07/06/18 16:35 Dose: 1 gm Potassium Chloride (Klor-Con 10) 20 meq PO DAILY [facility] Promethazine HCl/Dextromethorphan (Phenergan Dm Syrup) 5 ml PO Q6 PRN PRN Reason: Cough Rivaroxaban (Xarelto) 15 mg PO QPM [facility]; Protocol Last Admin: 07/06/18 18:56 Dose: 15 mg Sevelamer Carbonate (Renvela) 800 mg PO TID [facility] Last Admin: 07/06/18 16:38 Dose: 800 mg Tamsulosin HCl (Flomax) 0.4 mg PO HS RAY Zolpidem Tartrate (Ambien) 5 mg PO HS [facility] Physical Exam - Constitutional Appears: Non-toxic - Head Exam Head Exam: NORMAL INSPECTION - Eye Exam Eye Exam: Normal appearance - ENT Exam ENT Exam: Mucous Membranes Moist - Neck Exam Neck exam: Positive for: Full Rom - Respiratory Exam Respiratory Exam: NORMAL BREATHING PATTERN - Cardiovascular Exam Cardiovascular Exam: REGULAR RHYTHM - GI/Abdominal Exam GI & Abdominal Exam: Normal Bowel Sounds - Rectal Exam Rectal Exam: Deferred - Extremities Exam Extremities exam: Negative for: pedal edema - Back Exam Back exam: NORMAL INSPECTION - Neurological Exam Neurological exam: Alert, Oriented x3 - Psychiatric Exam Psychiatric exam: Normal Affect - Skin Skin Exam: Normal Color Results - Vital Signs Recent Vital Signs: Last Vital Signs Temp 97.9 F 07/06/18 15:46 Pulse 62 07/06/18 18:58 Resp 17 07/06/18 15:46 BP 136/65 07/06/18 18:58 Pulse Ox 96 07/06/18 15:46 - Labs Result Diagrams: 07/06/18 10:06 07/06/18 10:06 Labs: Laboratory Results - last 24 hr 07/06/18 07/06/18 07/06/18 10:06 10:06 16:46 WBC 6.7 RBC 3.25 L Hgb 9.8 L Hct 29.8 L MCV 91.7 MCH 30.3 MCHC 33.0 RDW 13.8 Plt Count 171 MPV 8.9 Neut % (Auto) 79.9 H Lymph % (Auto) 12.8 L [place] % (Auto) 5.4 Eos % (Auto) 1.3 Baso % (Auto) 0.6 Neut # (Auto) 5.4 Lymph # (Auto) 0.9 L [place] # (Auto) 0.4 Eos # (Auto) 0.1 Baso # (Auto) 0.0 Sodium 139 Potassium 4.9 Chloride 99 Carbon Dioxide 29 Anion Gap 16 BUN 37 H Creatinine 2.2 H Est GFR ( Amer) 35 Est GFR (Non-Af Amer) 29 POC Glucose (mg/dL) 275 H Random Glucose 176 H Calcium 9.0 Total Bilirubin 0.2 AST 21 ALT 24 Alkaline Phosphatase 43 Troponin I 0.0190 NT-Pro-B Natriuret Pep 1040 H Total Protein 7.2 Albumin 3.8 Globulin 3.4 Albumin/Globulin Ratio 1.1 - EKG Data EKG Interpreted by: Myself EKG shows normal: Sinus rhythm Assessment & Plan (1) Dyspnea Assessment and Plan: likely due to pulmonary origin. no evidence of heart failure. LV function is normal. Status: Acute (2) CAD (coronary artery disease) Assessment and Plan: medical therapy. no current angina Status: Acute (3) HTN (hypertension) Assessment and Plan: blood pressure control Status: Acute
[2018-07-06] MEDS ORDERED: Latanoprost 0.005% Opht SOUTION OD SCH (22:00)
[2018-07-06] MEDS: Promethazine DM 6.25 mg-15 mg/5 ml Syrup PO PRN (22:53)
[2018-07-07 03:27] VITALS: RESP 20
[2018-07-07 05:41] LABS: HEMOGLOBIN 9.7 g/dL (12.0-18.0); MEAN CORPUSCULAR HEMOGLOBIN 29.8 pg (27.0-31.0); MEAN CORPUSCULAR HGB CONC 33.1 g/dL (33.0-37.0); RBC 3.24 Mil/uL (4.40-5.90); WHITE BLOOD COUNT 6.5 K/uL (4.8-10.8)
[2018-07-07 05:45] LABS: CALCIUM 8.7 mg/dL (8.4-10.2)
[2018-07-07] MEDS ORDERED: HCTZ/Losartan 12.5/50 Tab PO SCH (09:00)
[2018-07-07] MEDS ORDERED: Enoxaparin 30 mg Syringe SC SCH (09:00)
[2018-07-07] MEDS ORDERED: Potassium Chloride 20 mEq ER Tab PO SCH (09:00)
[2018-07-07] MEDS: Azithromycin 500 MG in Sodium Chloride 0.9% 250 ML IVPB SCH (09:07)
[2018-07-07] MEDS: Omega-3-Acid Ethyl Esters 1 GM Cap PO SCH (09:08)
[2018-07-07] MEDS: Insulin Lispro (humaLOG) 100 Units/ml Inj SC SCH ×2 (09:18→12:52)
[2018-07-07] MEDS ORDERED: Albuterol-Ipratrop 3 mg / 0.5 (3 ml) UD INH SCH ×2 (09:30)
--- NOTE | 2018-07-07 10:32 | CP.PCM.CON ---
History of Present Illness - History of Present Illness History of Present Illness: 77 years of age male I was called to see him for abnormal kidney function. Patient presented to the emergency room complaining of some cough and congestion and he was given Levaquin and treatment for upper respiratory tract infection as outpatient I believe patient may have only 1 or 2 doses of Levaquin and the patient known to have multiple past medical history as well. And when he presented to the emergency room noted to serum creatinine elevated 2.2 Past medical history Diabetes mellitus and hypertension and pacemaker and history of chronic kidney disease he has been seen barrel raiser as outpatient Hyperlipidemia And pacemaker Review of Systems - Constitutional Constitutional: Anorexia - EENT Nose/Mouth/Throat: As Per HPI - Cardiovascular Cardiovascular: Dyspnea, Dyspnea on Exertion. absent: Edema - Respiratory Respiratory: Cough, Dyspnea, Chest Congestion - Gastrointestinal Gastrointestinal: absent: Abdominal Pain, Coffee Ground Emesis, Nausea - Genitourinary Genitourinary: Nocturia - Musculoskeletal Musculoskeletal: absent: Abnormal Gait, Back Pain, Numbness - Integumentary Integumentary: As Per HPI, Acne, Alopecia, Bleeding Lesions, Change in Hair, Change in Nails, Change in Pigmentation, Changing Lesions, Dry Skin, Erythema, Furuncle, Hirsutism, Lesions, New Lesions, Non-Healing Lesions, Photosensitivity, Pruritus, Rash, Skin Pain, Skin Ulcer, Sores, Striae, Swell ing, Unusual Bruising, Wounds, Jaundice, Other - Neurological Neurological: As Per HPI, Abnormal Gait, Abnormal Hearing, Abnormal Movements, Abnormal Speech, Behavioral Changes, Burning Sensations, Confusion, Convulsions, Disequilibrium, Dizziness, Numbness, Focal Weakness, Frequent Falls, Headaches, Lack of Coordination, Loss of Vision, Memory Loss, Paresthesias, Radicular Pain, Restless Legs, Sensory Deficit, Syncope, Tingling, Tremor, Vertigo, Weakness, Other Visual Disturbances, Other - Psychiatric Psychiatric: As Per HPI, Abnormal Sleep Pattern, Anhedonia, Anxiety, Auditory Hallucinations, Behavioral Changes, Change in Appetite, Change in Libido, Confusion, Depression, Difficulty Concentrating, Hallucinations, Homicidal Ideation, Hopelessness, Irritability, Memory Loss, Mood Swings, Panic Attacks, Paranoia, Suicidal Ideation, Visual Hallucinations, Tactile Hallucinations, Other - Endocrine Endocrine: absent: Fatigue - Hematologic/Lymphatic Hematologic: absent: Easy Bleeding Past Patient History - Infectious Disease Hx of Infectious Diseases: None - Past Medical History & Family History Past Medical History?: Yes - Past Social History Smoking Status: Never Smoked - CARDIAC Hx Congestive Heart Failure: Yes Hx Hypercholesterolemia: Yes Hx Hypertension: Yes Hx Pacemaker: Yes Hx Peripheral Edema: Yes - PULMONARY Hx Sleep Apnea: Yes - NEUROLOGICAL Hx Neurological Disorder: Yes HX Cerebrovascular Accident: No Hx Dizziness: No Hx Syncope: No Other/Comment: DIABETIC NEUROPATHY - HEENT Hx HEENT Problems: Yes Hx Blind: No Hx Deafness: No Hx Difficulty Chewing: No Hx Glaucoma: Yes - RENAL Hx Chronic Kidney Disease: No - ENDOCRINE/METABOLIC Hx Endocrine Disorders: Yes Hx Diabetes Mellitus Type 2: Yes - HEMATOLOGICAL/ONCOLOGICAL Hx Blood Disorders: No Hx Bruising: No Hx Hepatitis A: No Hx Hepatitis B: No Hx Hepatitis C: No - INTEGUMENTARY Hx Dermatological Problems: Yes Other/Comment: CHICKEN POXSHINGLES - MUSCULOSKELETAL/RHEUMATOLOGICAL Hx Musculoskeletal Disorders: Yes Hx Falls: Yes - GASTROINTESTINAL Hx Gastritis: Yes - GENITOURINARY/GYNECOLOGICAL Hx Genitourinary Disorders: Yes Other/Comment: difficulty urinating. pt takes flomax - PSYCHIATRIC Hx Psychophysiologic Disorder: No Hx Substance Use: No - SURGICAL HISTORY Hx Coronary Stent: Yes - ANESTHESIA Hx Anesthesia: Yes Hx Anesthesia Reactions: No Hx Malignant Hyperthermia: No Meds Allergies/Adverse Reactions: Allergies Allergy/AdvReac Type Severity Reaction Status Date / Time No Known Allergies Allergy Verified 09/24/16 10:28 - Medications Medications: Current Medications Acarbose (Precose 50 Mg Tab) 50 mg PO ACTID [facility] [place] Last Admin: 07/07/18 09:09 Dose: 50 mg Albuterol/Ipratropium (Duoneb 3 Mg/0.5 Mg (3 Ml) Ud) 3 ml INH RQ4 [facility] [place] Allopurinol (Zyloprim) 200 mg PO DAILY [facility] [place] Last Admin: 07/07/18 09:17 Dose: 200 mg Amlodipine Besylate (Norvasc) 5 mg PO DAILY [facility] [place] Last Admin: 07/07/18 09:13 Dose: 5 mg Aspirin (Ecotrin) 81 mg PO DAILY [facility] [place] Last Admin: 07/07/18 09:16 Dose: 81 mg Atorvastatin Calcium (Lipitor) 20 mg PO DAILY [facility] [place] Last Admin: 07/07/18 09:16 Dose: 20 mg Carvedilol (Coreg) 25 mg PO Q12H [facility] [place] Last Admin: 07/07/18 05:13 Dose: 25 mg Clonidine HCl (Catapres) 0.1 mg PO Q12 [facility] [place] Last Admin: 07/07/18 09:11 Dose: 0.1 mg Dextrose (Dextrose 50% Inj) 0 ml IV STAT PRN; Protocol PRN Reason: Hypoglycemia Protocol Dextrose (Glutose 15) 0 gm PO ONCE PRN; Protocol PRN Reason: Hypoglycemia Protocol Duloxetine HCl (Cymbalta) 60 mg PO DAILY [facility] [place] Last Admin: 07/07/18 09:08 Dose: 60 mg Ferrous Sulfate (Feosol) 325 mg PO DAILY [facility] [place] Last Admin: 07/07/18 09:09 Dose: 325 mg Fluticasone Propionate (Flonase) 1 spr HEENA BID PRN PRN Reason: Allergy symptoms Glucagon (Glucagen Diagnostic Kit) 0 mg IM STAT PRN; Protocol PRN Reason: Hypoglycemia Protocol HCTZ/Losartan Potassium (Hyzaar 12.5 Mg-50 Mg) 2 tab PO DAILY [facility] [place] Home Med (Liraglutide [Victoza 3-Kane]) 1.8 mg SC DAILY [facility] [place] Azithromycin 500 mg/ Sodium (Chloride) 250 mls @ 250 mls/hr IVPB DAILY [facility] [place]; Protocol Last Admin: 07/07/18 09:07 Dose: 250 mls/hr Ceftriaxone Sodium 1 gm/ (Sodium Chloride) 100 mls @ 100 mls/hr IVPB DAILY [facility] [place]; Protocol Last Admin: 07/07/18 09:07 Dose: 100 mls/hr Sodium Chloride (Sodium Chloride 0.45%) 500 mls @ 80 mls/hr IV .Q6H15M [facility] [place] Stop: 07/07/18 11:24 Last Admin: 07/07/18 09:17 Dose: 80 mls/hr Insulin Human Lispro (Humalog) 0 units SC ACCU-CHECK [facility] [place]; Protocol Last Admin: 07/07/18 09:18 Dose: 2 units Latanoprost (Xalatan Opht) 1 drop OD HS [facility] [place] Last Admin: 07/06/18 23:01 Dose: 1 drop Losartan Potassium (Cozaar) 100 mg PO DAILY [facility] [place] Metformin HCl (Glucophage) 1,000 mg PO BID [facility] [place] Last Admin: 07/07/18 09:10 Dose: 1,000 mg [id number]-[id number] Ethyl Esters (Lovaza) 1 gm PO TID [facility] [place] Last Admin: 07/07/18 09:08 Dose: 1 gm Potassium Chloride (K-Dur 20 Meq Er Tab) 20 meq PO DAILY [facility] [place] Last Admin: 07/07/18 09:09 Dose: 20 meq Promethazine HCl/Dextromethorphan (Phenergan Dm Syrup) 5 ml PO Q6 PRN PRN Reason: Cough Last Admin: 07/06/18 22:53 Dose: 5 ml Rivaroxaban (Xarelto) 15 mg PO QPM [facility] [place]; Protocol Last Admin: 07/06/18 18:56 Dose: 15 mg Sevelamer Carbonate (Renvela) 800 mg PO TID [facility] [place] Last Admin: 07/07/18 09:10 Dose: 800 mg Tamsulosin HCl (Flomax) 0.4 mg PO HS [facility] [place] Last Admin: 07/06/18 22:52 Dose: 0.4 mg Zolpidem Tartrate (Ambien) 5 mg PO HS [facility] [place] Last Admin: 07/06/18 21:29 Dose: 5 mg Physical Exam - Constitutional Appears: No Acute Distress - Eye Exam Eye Exam: Conjunctival injection - ENT Exam ENT Exam: Mucous Membranes Moist - Neck Exam Neck exam: Negative for: Lymphadenopathy - Respiratory Exam Respiratory Exam: NORMAL BREATHING PATTERN. absent: Chest Wall Tenderness - Cardiovascular Exam Cardiovascular Exam: absent: Gallop, JVD, Rubs - GI/Abdominal Exam GI & Abdominal Exam: Normal Bowel Sounds. absent: Guarding - Extremities Exam Extremities exam: Negative for: calf tenderness - Back Exam Back exam: absent: CVA tenderness (L), CVA tenderness (R) - Neurological Exam Neurological exam: Alert - Psychiatric Exam Psychiatric exam: Normal Affect - Skin Skin Exam: Dry, Intact, Normal Color, Warm Results - Vital Signs Recent Vital Signs: Last Vital Signs Temp 98.1 F 07/07/18 08:24 Pulse 73 07/07/18 09:13 Resp 20 07/07/18 08:24 BP 113/64 07/07/18 09:13 Pulse Ox 94 L 07/07/18 08:24 - Labs Result Diagrams: 07/07/18 05:15 07/07/18 05:15 Labs: Laboratory Results - last 24 hr 07/06/18 07/06/18 07/06/18 10:06 16:46 21:35 WBC RBC Hgb Hct MCV MCH MCHC RDW Plt Count Sodium 139 Potassium 4.9 Chloride 99 Carbon Dioxide 29 Anion Gap 16 BUN 37 H Creatinine 2.2 H Est GFR ( Amer) 35 Est GFR (Non-Af Amer) 29 POC Glucose (mg/dL) 275 H 215 H Random Glucose 176 H Calcium 9.0 Total Bilirubin 0.2 AST 21 ALT 24 Alkaline Phosphatase 43 Troponin I 0.0190 NT-Pro-B Natriuret Pep 1040 H Total Protein 7.2 Albumin 3.8 Globulin 3.4 Albumin/Globulin Ratio 1.1 07/07/18 07/07/18 07/07/18 05:07 05:15 05:15 WBC 6.5 RBC 3.24 L Hgb 9.7 L Hct 29.2 L MCV 90.0 MCH 29.8 MCHC 33.1 RDW 14.0 Plt Count 173 Sodium 139 Potassium 4.4 Chloride 99 Carbon Dioxide 29 Anion Gap 15 BUN 44 H Creatinine 2.0 H Est GFR ( Amer) 40 Est GFR (Non-Af Amer) 33 POC Glucose (mg/dL) 187 H Random Glucose 179 H Calcium 8.7 Total Bilirubin AST ALT Alkaline Phosphatase Troponin I NT-Pro-B Natriuret Pep Total Protein Albumin Globulin Albumin/Globulin Ratio Assessment & Plan (1) KEV (acute kidney injury) Assessment and Plan: Patient presented what appears to be acute kidney injury superimposed on history of chronic kidney disease perhaps stage III? presented with appears to be bronchitis or upper respiratory infection History of pacemaker Hypertension My recommendation Diuretics on hold I suggest to hold losartan for couple days only And patient apparently is going to be discharged and follow-up by primary care doctor as outpatient. Status: Acute (2) Acute bronchitis Status: Acute (3) CAD (coronary artery disease) Status: Acute (4) HTN (hypertension) Status: Acute
[2018-07-07 11:48] VITALS: BP 115/67; PULSE 80; TEMP 97.8; O2SAT 95
[2018-07-07] MEDS: Promethazine DM 6.25 mg-15 mg/5 ml Syrup PO PRN (12:44)
--- NOTE | 2018-07-07 14:33 | CP.PCM.DIS ---
<SherlynMitul - Last Filed: 07/07/18 14:51> Provider - Provider Date of Admission: 07/06/18 11:19 Attending physician: Andrei Meredith MD Primary care physician: Dr Polk Consults: 07/06/18 12:49 Cardiology Consult Stat Comment: Consulting Provider: Luciano Baxter Consulting Physician: Luciano Baxter Reason for Consult: SOB, eval for CHF 07/06/18 13:13 Nephrology Consult Stat Comment: Consulting Provider: Ran Mallory Consulting Physician: Ran Mallory Reason for Consult: deteriorating renal function Time Spent in preparation of Discharge (in minutes): 40 Diagnosis - Discharge Diagnosis (1) Acute kidney injury superimposed on CKD Status: Acute Comment: -Improved after IV hydration. Pt stable. Will stop Losartan for 3 days. -Discontinued Levofloxacin and HCTZ/Losartan. (2) Acute bronchitis Status: Acute Comment: -Azithromycin PO prescribed. (3) Systolic and diastolic CHF, acute on chronic Status: Acute Hospital Course - Lab Results Lab Results: Micro Results 07/06/18 10:45 Blood-Venous Blood Culture - Preliminary NO GROWTH AFTER 24 HOURS 07/06/18 11:55 Blood-Venous Blood Culture - Preliminary NO GROWTH AFTER 24 HOURS Most Recent Lab Values WBC 6.5 K/uL (4.8-10.8) 07/07/18 05:15 RBC 3.24 Mil/uL (4.40-5.90) L 07/07/18 05:15 Hgb 9.7 g/dL (12.0-18.0) L 07/07/18 05:15 Hct 29.2 % (35.0-51.0) L 07/07/18 05:15 MCV 90.0 fl (80.0-94.0) 07/07/18 05:15 MCH 29.8 pg (27.0-31.0) 07/07/18 05:15 MCHC 33.1 g/dL (33.0-37.0) 07/07/18 05:15 RDW 14.0 % (11.5-14.5) 07/07/18 05:15 Plt Count 173 K/uL (130-400) 07/07/18 05:15 MPV 8.9 fl (7.2-11.7) 07/06/18 10:06 Neut % (Auto) 79.9 % (50.0-75.0) H 07/06/18 10:06 Lymph % (Auto) 12.8 % (20.0-40.0) L 07/06/18 10:06 Blount % (Auto) 5.4 % (0.0-10.0) 07/06/18 10:06 Eos % (Auto) 1.3 % (0.0-4.0) 07/06/18 10:06 Baso % (Auto) 0.6 % (0.0-2.0) 07/06/18 10:06 Neut # (Auto) 5.4 K/uL (1.8-7.0) 07/06/18 10:06 Lymph # (Auto) 0.9 K/uL (1.0-4.3) L 07/06/18 10:06 Blount # (Auto) 0.4 K/uL (0.0-0.8) 07/06/18 10:06 Eos # (Auto) 0.1 K/uL (0.0-0.7) 07/06/18 10:06 Baso # (Auto) 0.0 K/uL (0.0-0.2) 07/06/18 10:06 Sodium 139 mmol/l (132-148) 07/07/18 05:15 Potassium 4.4 MMOL/L (3.6-5.0) 07/07/18 05:15 Chloride 99 mmol/L (98-107) 07/07/18 05:15 Carbon Dioxide 29 mmol/L (22-30) 07/07/18 05:15 Anion Gap 15 (10-20) 07/07/18 05:15 BUN 44 mg/dl (9-20) H 07/07/18 05:15 Creatinine 2.0 mg/dl (0.8-1.5) H 07/07/18 05:15 Est GFR ( Amer) 40 07/07/18 05:15 Est GFR (Non-Af Amer) 33 07/07/18 05:15 POC Glucose (mg/dL) 225 mg/dL (65-110) H 07/07/18 11:02 Random Glucose 179 mg/dL (75-110) H 07/07/18 05:15 Calcium 8.7 mg/dL (8.4-10.2) 07/07/18 05:15 Total Bilirubin 0.2 mg/dl (0.2-1.3) 07/06/18 10:06 AST 21 U/L (17-59) 07/06/18 10:06 ALT 24 U/L (21-72) 07/06/18 10:06 Alkaline Phosphatase 43 U/L (38-126) 07/06/18 10:06 Troponin I 0.0190 ng/mL (0.00-0.120) 07/06/18 10:06 NT-Pro-B Natriuret Pep 1040 pg/ml (0-900) H 07/06/18 10:06 Total Protein 7.2 G/DL (6.3-8.2) 07/06/18 10:06 Albumin 3.8 g/dL (3.5-5.0) 07/06/18 10:06 Globulin 3.4 gm/dL (2.2-3.9) 07/06/18 10:06 Albumin/Globulin Ratio 1.1 (1.0-2.1) 07/06/18 10:06 - Hospital Course Hospital Course: 77 y/o M with a PMHx of DM2, HTN, HLD and CKD was admitted due to clinical pneumonia, aggravating renal function and evaluation of acute heart failure. CXR was unremarkable. IV Ceftriaxone and Azithromycin were administered for clinical community acquired pneumonia. Due to elevated BNP, echocardiogram ordered which was unremarkable with LVEF of 55-60%. Cardiology was consulted, ACS and angina were ruled out by normal EKG. Renal function improved after IV hydration, nephrology consulted who recommended to stop Losartan for a few days. Pt stayed hospitalized overnight, afebrile, dry cough improved, no SOB, stable with NO acute events. Pt will be discharged home on PO Azythromycin for 4 days, instructed to stop HCTZ/Losartan and to start Losartan 100mg daily in 3 days. Medications sent to pharmacy. Pt instructed to f/u with PMD within 1 week. - Date & Time of H&P Date of H&P: 07/06/18 Time of H&P: 12:31 Discharge Exam - Head Exam Head Exam: NORMAL INSPECTION - Eye Exam Eye Exam: EOMI - ENT Exam ENT Exam: Normal Exam - Neck Exam Neck exam: Full Rom, Meningismus - Respiratory Exam Respiratory Exam: Wheezes (intermittent, at end of expiration, on bilateral lower barriga. ), NORMAL BREATHING PATTERN. absent: Rhonchi, Respiratory Distress - Cardiovascular Exam Cardiovascular Exam: REGULAR RHYTHM, +S1, +S2 - GI/Abdominal Exam GI & Abdominal Exam: Normal Bowel Sounds, Soft. absent: Distended, Guarding, Rebound, Rigid, Tenderness - Extremities Exam Extremities exam: full ROM, normal inspection - Neurological Exam Neurological exam: Alert, Oriented x3 Discharge Plan - Discharge Medications Prescriptions: Azithromycin [Z-Kane] 250 mg PO DAILY 4 Days #4 tab Losartan [Cozaar] 100 mg PO DAILY #30 tab - Follow Up Plan Condition: FAIR Disposition: HOME/ ROUTINE Instructions: Shortness of Breath (Dyspnea), Chronic Kidney Disease (DC) Additional Instructions: --Iniciar Azithromycin 250mg tabletas, jake tableta diaria por 4 bell --Por favor, parar y no alpa mas HCTZ/Losartan 25/100. --No alpa Levofloxacin. --Siga con [facility]. --Dominique jake chris con rene medico primario en jake semana, por favor. Referrals: Satya Polk MD [Medical Doctor] - <Gillian Hoyos - Last Filed: 07/07/18 17:00> Provider - Provider Date of Admission: 07/06/18 11:19 Attending physician: Andrei Meredith MD Consults: 07/06/18 12:49 Cardiology Consult Stat Comment: Consulting Provider: Luciano Baxter Consulting Physician: Luciano Baxter Reason for Consult: SOB, eval for CHF 07/06/18 13:13 Nephrology Consult Stat Comment: Consulting Provider: Ran Mallory Consulting Physician: Ran Mallory Reason for Consult: deteriorating renal function Hospital Course - Lab Results Lab Results: Micro Results 07/06/18 10:45 Blood-Venous Blood Culture - Preliminary NO GROWTH AFTER 24 HOURS 07/06/18 11:55 Blood-Venous Blood Culture - Preliminary NO GROWTH AFTER 24 HOURS Most Recent Lab Values WBC 6.5 K/uL (4.8-10.8) 07/07/18 05:15 RBC 3.24 Mil/uL (4.40-5.90) L 07/07/18 05:15 Hgb 9.7 g/dL (12.0-18.0) L 07/07/18 05:15 Hct 29.2 % (35.0-51.0) L 07/07/18 05:15 MCV 90.0 fl (80.0-94.0) 07/07/18 05:15 MCH 29.8 pg (27.0-31.0) 07/07/18 05:15 MCHC 33.1 g/dL (33.0-37.0) 07/07/18 05:15 RDW 14.0 % (11.5-14.5) 07/07/18 05:15 Plt Count 173 K/uL (130-400) 07/07/18 05:15 MPV 8.9 fl (7.2-11.7) 07/06/18 10:06 Neut % (Auto) 79.9 % (50.0-75.0) H 07/06/18 10:06 Lymph % (Auto) 12.8 % (20.0-40.0) L 07/06/18 10:06 Blount % (Auto) 5.4 % (0.0-10.0) 07/06/18 10:06 Eos % (Auto) 1.3 % (0.0-4.0) 07/06/18 10:06 Baso % (Auto) 0.6 % (0.0-2.0) 07/06/18 10:06 Neut # (Auto) 5.4 K/uL (1.8-7.0) 07/06/18 10:06 Lymph # (Auto) 0.9 K/uL (1.0-4.3) L 07/06/18 10:06 Blount # (Auto) 0.4 K/uL (0.0-0.8) 07/06/18 10:06 Eos # (Auto) 0.1 K/uL (0.0-0.7) 07/06/18 10:06 Baso # (Auto) 0.0 K/uL (0.0-0.2) 07/06/18 10:06 Sodium 139 mmol/l (132-148) 07/07/18 05:15 Potassium 4.4 MMOL/L (3.6-5.0) 07/07/18 05:15 Chloride 99 mmol/L (98-107) 07/07/18 05:15 Carbon Dioxide 29 mmol/L (22-30) 07/07/18 05:15 Anion Gap 15 (10-20) 07/07/18 05:15 BUN 44 mg/dl (9-20) H 07/07/18 05:15 Creatinine 2.0 mg/dl (0.8-1.5) H 07/07/18 05:15 Est GFR ( Amer) 40 07/07/18 05:15 Est GFR (Non-Af Amer) 33 07/07/18 05:15 POC Glucose (mg/dL) 225 mg/dL (65-110) H 07/07/18 11:02 Random Glucose 179 mg/dL (75-110) H 07/07/18 05:15 Calcium 8.7 mg/dL (8.4-10.2) 07/07/18 05:15 Total Bilirubin 0.2 mg/dl (0.2-1.3) 07/06/18 10:06 AST 21 U/L (17-59) 07/06/18 10:06 ALT 24 U/L (21-72) 07/06/18 10:06 Alkaline Phosphatase 43 U/L (38-126) 07/06/18 10:06 Troponin I 0.0190 ng/mL (0.00-0.120) 07/06/18 10:06 NT-Pro-B Natriuret Pep 1040 pg/ml (0-900) H 07/06/18 10:06 Total Protein 7.2 G/DL (6.3-8.2) 07/06/18 10:06 Albumin 3.8 g/dL (3.5-5.0) 07/06/18 10:06 Globulin 3.4 gm/dL (2.2-3.9) 07/06/18 10:06 Albumin/Globulin Ratio 1.1 (1.0-2.1) 07/06/18 10:06 Attending/Attestation - Attestation I have personally seen and examined this patient.: Yes I have fully participated in the care of the patient.: Yes I have reviewed all pertinent clinical information, including history, physical exam and plan: Yes Notes (Text): KEV on CKD Stage III Acute CHF exacerbation, Systolic and diastolic dysfunction, EF 55%
== END 2018-07-07 14:42 | disposition home or self-care (01) ==
LOC: H.ER 09:26 → H.ERHOLD 11:19 → H.TEL 13:54
DX: N17.9 Acute kidney failure, unspecified (principal); I13.0 Hypertensive heart and chronic kidney disease with heart failure and stage 1 through stage 4 chronic kidney disease, or unspecified chronic kidney disease; J20.9 Acute bronchitis, unspecified; I50.43 Acute on chronic combined systolic (congestive) and diastolic (congestive) heart failure; E11.22 Type 2 diabetes mellitus with diabetic chronic kidney disease; E11.40 Type 2 diabetes mellitus with diabetic neuropathy, unspecified; E78.5 Hyperlipidemia, unspecified; G47.30 Sleep apnea, unspecified; Z79.82 Long term (current) use of aspirin; H40.9 Unspecified glaucoma; Z95.0 Presence of cardiac pacemaker; E78.00 Pure hypercholesterolemia, unspecified; D64.9 Anemia, unspecified; N18.3 Chronic kidney disease, stage 3 (moderate); Z95.5 Presence of coronary angioplasty implant and graft; I25.10 Atherosclerotic heart disease of native coronary artery without angina pectoris; J18.9 Pneumonia, unspecified organism; Z79.01 Long term (current) use of anticoagulants; K29.70 Gastritis, unspecified, without bleeding; Z79.4 Long term (current) use of insulin
CPT/HCPCS: 36415; 71046; 80048; 80053; 82948; 83880; 84484; 85025; 85027; 87040; 93005; 93306; 94640; 96360; 99285; G0378; J0456; J0696; J7050